=== PATIENT | female | born 1960 | race Caucasian/White ===

== ENCOUNTER 2022-01-20 14:01 | Emergency (ER) | payer SELFPAY ==
[2022-01-20 14:06] VITALS: BP 151/79; PULSE 74; RESP 16; TEMP 36.8; O2SAT 92; BMI 32.8
--- NOTE | 2022-01-20 14:22 | XRR_ITS ---
PROCEDURE INFORMATION: Exam: XR Left Shoulder Exam date and time: 01/20/2022 2:36 PM Age: 62 years old Clinical indication: Injury or trauma; Fall; Blunt trauma (contusions or hematomas); Shoulder; Left; Additional info: Fall injury TECHNIQUE: Imaging protocol: Radiologic exam of the Left shoulder. Views: 2 or more views. COMPARISON: No relevant prior studies available. FINDINGS: Bones/joints: There is a transverse fracture through the mid left humeral diaphysis with 50% anterior displacement of the distal fracture fragment. There is osteopenia. Soft tissues: Normal. XR/XR shoulder LT min 2V* [id number] IMPRESSION: There is a transverse fracture through the mid left humeral diaphysis
--- NOTE | 2022-01-20 14:23 | ED_ITS ---
Documented by User: ESTELLE Arthur 01/20/22 20:46 HPI - Extremity Problem General: Chief complaint: Extremity Injury, Upper Stated complaint: LEFT ELBOW PAIN S/P FALL Time Seen by Provider: 01/20/22 14:13 History of Present Illness: Patient is a 62-year-old female comes to the ED via EMS with left elbow pain after fall. EMS gave patient 4 mg of Zofran and 30 mg of Toradol while in route. Fall occurred just prior to arrival. Patient says she was trying [place] get [place] on the river and fell landing directly on her left elbow. She rates her elbow pain an 8 out of 10. She denies any loss of consciousness or head trauma. She states that after injury her left lower arm was just dangling and she was in a lot of pain. Patient is visiting the area and is post to go back to her home in [place] today. Associated symptoms: Deny chest pain, fever(s) or rash Review of Systems Const: Denies: fever(s), chills or fatigue Eyes: Denies: change in vision or eye discomfort ENMT: Denies: throat pain, odynophagia, nasal discharge or nasal congestion Card: Denies: chest pain, palpitations, edema, swelling of feet/ankles, dyspnea on exertion or orthopnea Resp: Denies: dyspnea, productive cough or non-productive cough GI: Denies: abdominal pain, nausea, vomiting, diarrhea, constipation or hematochezia : Denies: flank pain, dysuria or hematuria Musc: Reports: extremity pain (Left elbow); Denies: neck pain, back pain or extremity swelling Skin/Breast: Denies: rash or new lesions Neuro: Denies: headache(s), numbness in extremities or weakness in extremities [facility] ED PFSH: Medical History No pertinent family history Surgical History No pertinent past surgical history Physical Exam Const: COMMON NORMALS: patient oriented x3 and alert GENERAL APPEARANCE: cooperative HENMT: COMMON NORMALS: normocephalic HEAD & SCALP: normocephalic MOUTH: Normal oral and palatal mucosa present THROAT: posterior oropharynx normal and uvula midline Neck/C-Spine: COMMON NORMALS: supple GENERAL: Yes normal visual inspection Resp: COMMON NORMALS: normal respiratory effort, No retractions, No use of accessory muscles and clear to auscultation bilaterally AUSCULTATION: clear to auscultation bilaterally Cardio: COMMON NORMALS: regular rate, regular rhythm, S1 normal heart sound present, S2 normal heart sound present, No gallops present (Cardio), No clicks present (Cardio), No murmurs present (Cardio) and Peripheral pulses 2+ throughout RATE: regular rate RHYTHM: regular rhythm HEART SOUNDS: S1 normal heart sound present and S2 normal heart sound present PERIPHERAL PULSES: Peripheral pulses 2+ throughout GI: COMMON NORMALS: Normal to inspection, nondistended, normoactive bowel sounds present, Soft to palpation, non-tender and no masses PALPATION: Yes Soft to palpation : COMMON NORMALS: Yes no CVA tenderness BLADDER/KIDNEY EXAM: Yes no CVA tenderness Back/Pelvis: COMMON NORMALS: no CVA tenderness Extremity: NARRATIVE EXTREMITY EXAM: Patient arrives in a posterior arm splint that was placed by EMS. Tenderness throughout her left upper arm. Neurovascular tact distally. Limited range of motion due to pain. Neuro: COMMON NORMALS: patient oriented x3 SENSORIUM/ORIENTATION: Yes alert GAIT: Yes Normal gait present Skin: GENERAL SKIN EXAM: dry skin Course Consultations: Consultation #1: I contacted Dr. Barba to tell him about patient case. He told me to have patient put in a long-arm splint and sling and she will need Ortho follow-up this coming week. Vital Signs: Vital signs: Vital Signs Temperature 98.2 F 01/20/22 14:06 Pulse Rate 78 01/20/22 18:58 Respiratory Rate 16 01/20/22 18:58 Blood Pressure 119/69 01/20/22 18:58 Pulse Oximetry 98 01/20/22 18:58 Oxygen Delivery Me thod 01/20/22 18:58 MDM - Extremity (Nontraumatic) Medical Decision Making Patient is a 62-year-old female comes to the ED with left upper arm pain and injury. Denies any head trauma or loss of consciousness. Patient is visiting area and lives in [place] and is heading back home today. Vitals are stable. Patient is neurovascular tact in her left arm but she has significant pain and tenderness throughout left upper arm. Limited range of motion due to pain. Rest of exam is benign. X-ray left shoulder showed a transverse fracture thro ugh the mid left humeral diaphysis. I contacted Dr. Barba told about patient case and he told me to put patient in a long-arm splint with a sling and she needs follow-up within the next couple days. Patient wants to go back to [place] and get treated with an orthopedic doctor near her home. She was placed in a long-arm splint and sling and discharged home with a prescription for some Percocet for pain. She was given strict instructions that she needs to follow- up with Ortho at her home on SaturdayJanuary 22. Patient understood and agreed with plan. Lab Data Radiology Impressions Shoulder X-Ray 01/20/22 14:22 IMPRESSION: There is a transverse fracture through the mid left humeral diaphysis Discharge Plan Discharge Patient Disposition: Home Clinical Impression: Fracture of humerus Qualifiers: Encounter type: initial encounter Humerus Location: shaft Fracture type: closed Fracture morphology: transverse Fracture alignment: displaced Laterality: left Qualified Code(s): S42.322A - Displaced transverse fracture of shaft of humerus, left arm, initial encounter for closed fracture Condition: Stable Discharge Orders: Discharge ED (Routine); Ordered 01/20/22 Ordered By: Aristides Guthrie Discharge Diet: Regular Discharge Activity: Limit activity as instructed Patient Instructions: Fractures - Humerus, Opioid Safety Activity Restrictions/Additional Instructions: Follow-up with medical provider as directed. Contact your PCP on Saturday to get you set up with an orthopedic doctor MARIELOS to manage and further treat fracture. Keep splint on, dry and in sling until further evaluated by orthopedic doctor. Take medications as prescribed. Return to the ER or your medical provider if condition worsens. Please read and understand discharge instructions. Thank you for choosing [facility] for your healthcare needs today. Please realize this is an emergency room and that we are providing you with a medical screening exam and this may not be complete and all inclusive of all the testing and or work up that you may need to determine your ailment or severity of your illness. It is very important that you follow up as instructed or that you return to the Emergency Department should you have concerns or if your condition changes or worsens in any way. Coding Level of Care Code ED Furnace Combination Analyst for Chg Fwd Exam Comprehensive Documented by User: Yassine Menon DO 01/23/22 09:30 HPI - Extremity Problem General: Chief complaint: Extremity Injury, Upper Stated complaint: LEFT ELBOW PAIN S/P FALL Time Seen by Provider: 01/20/22 14:13 PFSH ED PFSH: Medical History No pertinent family history Surgical History No pertinent past surgical history Course Vital Signs: Vital signs: Vital Signs Temperature 98.2 F 01/20/22 14:06 Pulse Rate 78 01/20/22 18:58 Respiratory Rate 16 01/20/22 18:58 Blood Pressure 119/69 01/20/22 18:58 Pulse Oximetry 98 01/20/22 18:58 Oxygen Delivery Me thod 01/20/22 18:58 MDM - Extremity (Nontraumatic) Medical Decision Making Patient is a 62-year-old female comes to the ED with left upper arm pain and injury. Denies any head trauma or loss of consciousness. Patient is visiting area and lives in [place] and is heading back home today. Vitals are stable. Patient is neurovascular tact in her left arm but she has significant pain and tenderness throughout left upper arm. Limited range of motion due to pain. Rest of exam is benign. X-ray left shoulder showed a transverse fracture through the mid left humeral diaphysis. I contacted Dr. Barba told about patient case and he told me to put patient in a long-arm splint with a sling and she needs follow-up within the next couple days. Patient wants to go back to [place] and get treated with an orthopedic doctor near her home. She was placed in a long-arm splint and sling and discharged home with a prescription for some Percocet for pain. She was given strict instructions that she needs to follow- up with Ortho at her home on SaturdayJanuary 22. Patient understood and agreed with plan. Chart reviewed and patient discussed with midlevel. Agree with assessment and plan. Lab Data Radiology Impressions Shoulder X-Ray 01/20/22 14:22 IMPRESSION: There is a transverse fracture through the mid left humeral diaphysis Discharge Plan Discharge Patient Disposition: Home Clinical Impression: Fracture of humerus Qualifiers: Encounter type: initial encounter Humerus Location: shaft Fracture type: closed Fracture morphology: transverse Fracture alignment: displaced Laterality: left Q ualified Code(s): S42.322A - Displaced transverse fracture of shaft of humerus, left arm, initial encounter for closed fracture Condition: Stable Discharge Orders: Discharge ED (Routine); Ordered 01/20/22 Ordered By: Aristides Guthrie Discharge Diet: Regular Discharge Activity: Limit activity as instructed Patient Instructions: Fractures - Humerus, Opioid Safety Activity Restrictions/Additional Instructions: Follow-up with medical provider as directed. Contact your PCP on Saturday morning to get you set up with an orthopedic doctor MARIELOS to manage and further treat fracture. Keep splint on, dry and in sling until further evaluated by orthopedic doctor. Take medications as prescribed. Return to the ER or your medical provider if condition worsens. Please read and understand discharge instructions. Thank you for choosing [facility] for your healthcare needs today. Pl ease realize this is an emergency room and that we are providing you with a medical screening exam and this may not be complete and all inclusive of all the testing and or work up that you may need to determine your ailment or severity of your illness. It is very important that you follow up as instructed or that you return to the Emergency Department should you have concerns or if your condition changes or worsens in any way. Coding Level of Care Code ED Furnace Combination Analyst for Inés Villanueva Exam Comprehensive
[2022-01-20 14:31] VITALS: RESP 16; O2SAT 96
[2022-01-20] MEDS: HYDROmorphone 1 mg/mL INJ 1 mL IVP ×2 (14:31→16:00)
[2022-01-20 15:17] VITALS: RESP 16; O2SAT 95
[2022-01-20] MEDS: HYDROmorphone 1 mg/mL INJ 1 mL 0.5 MG IVP (15:17)
[2022-01-20 16:00] VITALS: RESP 15; O2SAT 93
[2022-01-20 18:58] VITALS: BP 119/69; PULSE 78; RESP 16; O2SAT 98
== END 2022-01-20 18:30 | disposition home or self-care (01) ==
PROVIDERS: Emergency Provider Physician Assistant
DX: S42.322A Displaced transverse fracture of shaft of humerus, left arm, initial encounter for closed fracture (principal); V94.0XXA Hitting object or bottom of body of water due to fall from watercraft, initial encounter
CPT/HCPCS: 29125; 73030; 96374; 96376; 99284; J1170